=== PATIENT | female | born 1935 | race Hispanic/Latino ===

== ENCOUNTER → 2018-04-25 10:30 | Outpatient (CLI) | payer OTHER, SELFPAY ==
--- NOTE | 2018-04-25 | DI.RAD.S_ITS ---
PROCEDURE: XR CERVICAL SPINE 2V OR 3V INDICATIONS: CHRONIC PAIN OF BOTH SHOULDERS TECHNIQUE: 4 view(s) of the cervical spine were acquired. COMPARISON: None. FINDINGS: Bones: No fractures or dislocations to the C7 level. The lateral masses of C1 appear intact on the odontoid view. No suspicious bony lesions. Multilevel degenerative disc narrowing and bony spondylosis. Soft tissues: No prevertebral soft tissue swelling. IMPRESSION: Multilevel degenerative cervical spine disease. Dictated by: Anthony Allison M.D. on 04/25/2018 at 11:28 Approved by: Anthony Allison M.D. on 04/25/2018 at 11:29
== END ==
PROVIDERS: Visit Provider Family Medicine
DX: M50.30 Other cervical disc degeneration, unspecified cervical region (principal); M25.511 Pain in right shoulder; M25.512 Pain in left shoulder
CPT/HCPCS: 72040